=== PATIENT | male | born 1975 | race Caucasian/White ===

== ENCOUNTER 2020-06-16 17:13 | Emergency (ER) | payer SELFPAY ==
--- NOTE | 2020-06-16 17:18 | CTR_ITS ---
PROCEDURE INFORMATION: Exam: CT Cervical Spine Without Contrast Exam date and time: 06/16/2020 5:20 PM Age: 45 years old Clinical indication: Injury or trauma; Fall; Blunt trauma TECHNIQUE: Imaging protocol: Computed tomography images of the cervical spine without contrast. Total images: 355 Radiation optimization: All CT scans at this facility use at least one of these dose optimization techniques: automated exposure control; mA and/or kV adjustment per patient size (includes targeted exams where dose is matched to clinical indication); or iterative reconstruction. COMPARISON: CT Cervical Spine wo* [id number] 04/22/2019 4:28 PM RADIATION DOSE METRICS: Total DLP (mGy-cm): 626.58 FINDINGS: Bones/joints: No acute fracture. Normal alignment. Degenerative disease with mild spondylosis deformans C6 and C7. Moderate facet arthrosis C4/C5 and to a less significant degree C3/C4. Discs/Spinal canal/Neural foramina: Degenerative disc disease with disc space height loss C6/C7. No significant disc protrusion. No severe spinal canal stenosis. Mild left neural foraminal narrowing C3/C4. Lungs: Lung apices are normal. Soft tissues: Unremarkable. CT/CT cervical spin wo con* [id number] IMPRESSION: No acute findings. Radiation Dose CTDIVOL = (mGy): DLP = 626.58 (mGy-cm)
--- NOTE | 2020-06-16 17:18 | CTR_ITS ---
PROCEDURE INFORMATION: Exam: CT Head Without Contrast Exam date and time: 06/16/2020 5:20 PM Age: 45 years old Clinical indication: Injury or trauma; Blunt trauma (contusions or hematomas); Injury details: Fall from roof TECHNIQUE: Imaging protocol: Computed tomography of the head without contrast. Total images: 208 Radiation optimization: All CT scans at this facility use at least one of these dose optimization techniques: automated exposure control; mA and/or kV adjustment per patient size (includes targeted exams where dose is matched to clinical indication); or iterative reconstruction. COMPARISON: CT head wo con* [id number] 04/22/2019 4:24 PM RADIATION DOSE METRICS: Total DLP (mGy-cm): 854.89 FINDINGS: Brain: Normal. No hemorrhage. Unremarkable white matter. No mass effect. Cerebral ventricles: No ventriculomegaly. Bones/joints: Unremarkable. No acute fracture. Paranasal sinuses: Visualized sinuses are unremarkable. No fluid levels. Mastoid air cells: Visualized mastoid air cells are well aerated. Soft tissues: Unremarkable. CT/CT head wo con* [id number] IMPRESSION: No acute intracranial abnormality. Radiation Dose CTDIVOL = (mGy): DLP = 854.89 (mGy-cm)
[2020-06-16 17:38] VITALS: BP 138/90; PULSE 99; RESP 16; TEMP 36.3; O2SAT 100; BMI 19.8
[2020-06-16 18:57] VITALS: BP 129/84; PULSE 100; RESP 18; O2SAT 99
--- NOTE | 2020-06-16 20:36 | ED_ITS ---
HPI - Neck Pain/Injury General: Chief Complaint: Neck Pain/Injury Stated Complaint: fell off roof/neck pain Time Seen by Provider: 06/16/20 18:36 History of Present Illness: HPI Narrative: Patient states he rolled off the roof today landing on the ground that was soft and now has neck pain is at approximately 8 to 10 foot fall denies any other injuries MD complaint: neck pain Onset (ago): hour(s) Place: home Severity: mild Severity scale (1-10): 2 Quality: aching Duration: constant Relieving factors: immobilization Exacerbating factors: movement of neck Context: fall Associated symptoms: Reports no associated symptoms; Denies headache(s) or nausea Treatments prior to arrival: none Review of Systems Const: Denies: fever(s), chills or body aches Eyes: Denies: change in vision or blurry vision ENMT: Denies: throat pain or nasal congestion Card: Denies: chest pain or dyspnea on exertion Resp: Denies: dyspnea, productive cough or non-productive cough GI: Denies: abdominal pain, nausea or vomiting : Denies: difficulty urinating Musc: Reports: neck pain; Denies: extremity pain Skin/Breast: Denies: rash Neuro: Denies: headache(s) Psych: Denies: anxiety or depression Gómez/Lymph: Denies: easy bruising Physical Exam Const: COMMON NORMALS: no acute distress, average body habitus and patient oriented x3 HENMT: COMMON NORMALS: normocephalic HEAD & SCALP: normal to inspection and normocephalic FACE & SINUS: normal facial exam Eye: COMMON NORMALS: conjunctivae normal GENERAL EYE: appearance normal, both eyes and all related structures CONJUNCTIVA: Yes conjunctivae normal Neck/C-Spine: COMMON NORMALS: no JVD CERVICAL SPINE: Yes cervical ROM normal OTHER: Patient has tenderness about C7 area of muscular around the neck no bony pain has full range of motion cervicalHas no radiculopathy Chest: COMMONS NORMALS: normal inspection of the chest Resp: COMMON NORMALS: normal respiratory effort and clear to auscultation bilaterally AUSCULTATION: clear to auscultation bilaterally Cardio: COMMON NORMALS: no JVD, regular rate and regular rhythm RATE: regular rate RHYTHM: regular rhythm GI: COMMON NORMALS: Normal to inspection, nondistended, normoactive bowel sounds present Extremity: COMMON NORMALS: normal to inspection and full ROM Neuro: COMMON NORMALS: patient oriented x3 Course Vital Signs: Vital signs: Vital Signs Temperature 97.3 F L 06/16/20 17:38 Pulse Rate 100 06/16/20 18:57 Respiratory Rate 18 06/16/20 18:57 Blood Pressure 129/84 06/16/20 18:57 Pulse Oximetry 99 06/16/20 18:57 Discharge Plan Discharge Patient Disposition: Home Clinical Impression: Cervical sprain Qualifiers: Encounter type: initial encounter Qualified Code(s): S13.9XXA - Sprain of joints and ligaments of unspecified parts of neck, initial encounter Condition: Stable Prescriptions: New ibuprofen 800 mg tablet 800 mg PO TID PRN (Reason: pain) Qty: 20 RF: 0 cyclobenzaprine 5 mg tablet 5 mg PO TID PRN (Reason: muscle spasm) Qty: 10 RF: 0 Discharge Orders: Discharge ED (Routine); Ordered 06/16/20 Ordered By: Justin Hou Discharge Diet: Usual diet Discharge Activity: Increase activity as tolerated Patient Instructions: Cervical Sprain (ED) Activity Restrictions/Additional Instructions: Follow-up with medical provider as directed. Take medications as prescribed. Return to the ER or your medical provider if condition worsens. Please read and understand discharge instructions. If any questions ask please. Follow-up with chiropractor or your primary care provider as needed. Can apply ice and moist heat to the area alternate. Coding Level of Care Code ED Relay Operator for Syd Palencia
== END 2020-06-16 18:58 | disposition home or self-care (01) ==
PROVIDERS: Emergency Provider Nurse Practitioner Family
DX: S13.9XXA Sprain of joints and ligaments of unspecified parts of neck, initial encounter (principal); W13.2XXA Fall from, out of or through roof, initial encounter
CPT/HCPCS: 12345; 70450; 72125; 99281; 99282

== ENCOUNTER 2020-09-07 20:16 | Emergency (ER) | payer SELFPAY ==
[2020-09-07 20:19] VITALS: BP 147/94; PULSE 107; RESP 19; TEMP 36.5; O2SAT 99; BMI 27.7
--- NOTE | 2020-09-07 20:26 | XR_ITS ---
WS: [id number] RIGHT FOOT: 3 VIEW(S) TECHNIQUE: AP, oblique and lateral. HISTORY: pain COMPARISON: None available. No acute fracture or dislocation. Normal tarsal/metatarsal alignment. Hypertrophic bone formation consistent with osteophytes involving the anterior talar neck. This may be from an old injury. No soft tissue abnormality or bone destruction. XR/XR foot RT min 3V* [id number] IMPRESSION: 1. No acute fracture. 2. Hypertrophic bone involving the anterior talar process. May be from old inj ury or arthritis.
--- NOTE | 2020-09-07 20:30 | ED_ITS ---
HPI - Extremity Problem General: Chief complaint: Extremity Injury, Lower Stated complaint: injury to right foot Time Seen by Provider: 09/07/20 20:26 History of Present Illness: HPI Narrative: Patient planes about pain to his right foot on the outer aspect times months, hurts worse last couple weeks. He feels like the pain is been worse today. Denies any known injury denies any swelling fever or other related problems MD Complaint: extremity pain Onset (ago): month(s) Pain Consistency: constant Location: right and lower extremity Severity scale (1-10): 3 Quality: aching Radiation: none Relieving factors: immobilization and rest Exacerbating factors: weight bearing Associated symptoms: Reports no associated symptoms; Deny fever(s) Review of Systems Const: Denies: fever(s) or chills Musc: Reports: extremity pain (Right foot been hurting for months) Psych: Denies: anxiety or depression Physical Exam Const: COMMON NORMALS: no acute distress Extremity: RIGHT LOWER EXTREMITY: Yes foot & digits (Tenderness along the fifth metatarsal no swelling no redness) Psych: COMMON NORMALS: mental status grossly normal Course Vital Signs: Vital signs: Vital Signs Temperature 97.7 F 09/07/20 20:19 Pulse Rate 107 H 09/07/20 20:19 Respiratory Rate 19 H 09/07/20 20:19 Blood Pressure 147/94 09/07/20 20:19 Pulse Oximetry 99 09/07/20 20:19 Discharge Plan Discharge Prescriptions: No Action ibuprofen 800 mg tablet 800 mg PO TID PRN (Reason: pain) Qty: 20 RF: 0 cyclobenzaprine 5 mg tablet 5 mg PO TID PRN (Reason: muscle spasm) Qty: 10 RF: 0 Coding Level of Care Code ED Printed Circuit Photographer for Syd Palencia
[2020-09-07 20:48] VITALS: BP 151/93; PULSE 94; RESP 16; O2SAT 95
== END 2020-09-07 21:01 | disposition home or self-care (01) ==
PROVIDERS: Emergency Provider Nurse Practitioner Family
DX: M79.671 Pain in right foot (principal)
CPT/HCPCS: 73630; 99282

== ENCOUNTER 2020-10-31 22:36 | Emergency (ER) | payer SELFPAY ==
[2020-10-31 22:45] VITALS: BP 137/88; PULSE 94; RESP 16; TEMP 36.8; O2SAT 96; BMI 28.5
[2020-10-31 22:48] VITALS: PULSE 94
--- NOTE | 2020-10-31 22:50 | XRR_ITS ---
PROCEDURE INFORMATION: Exam: XR Right Shoulder Exam date and time: 10/31/2020 10:51 PM Age: 45 years old Clinical indication: Injury or trauma; Fall; Blunt trauma (contusions or hematomas); Shoulder; Right; Additional info: Fall with right shoulder pain TECHNIQUE: Imaging protocol: XR Right shoulder. Views: 2 or more views. COMPARISON: No relevant prior studies available. FINDINGS: Bones/joints: Normal. Soft tissues: Normal. XR/XR shoulder RT min 2V* [id number] IMPRESSION: No acute findings.
--- NOTE | 2020-10-31 23:30 | ED_ITS ---
HPI - Extremity Problem General: Chief complaint: Extremity Injury, Upper Stated complaint: R SHOULDER INJURY//FELL, LANDED ON SHOULDER Time Seen by Provider: 10/31/20 22:51 History of Present Illness: HPI Narrative: Patient is a 45-year-old male comes to the ED with right shoulder injury. Patient says he was playing basketball and he fell to the ground landing on right shoulder. He states initially he was not in a lot of pain but after few minutes he is started feeling increasing pain in right shoulder. He now rates the pain a 9 out of 10 if he is moving arm at all. He says abducting his right arm causes a lot of pain. Associated symptoms: Deny chest pain, fever(s) or rash Review of Systems Const: Denies: fever(s), chills or fatigue Eyes: Denies: change in vision or eye discomfort ENMT: Denies: throat pain, odynophagia, nasal discharge or nasal congestion Card: Denies: chest pain, palpitations, edema, swelling of feet/ankles, dyspnea on exertion or orthopnea Resp: Denies: dyspnea, productive cough or non-productive cough GI: Denies: abdominal pain, nausea, vomiting, diarrhea, constipation or hematochezia : Denies: flank pain, difficulty urinating, dysuria or hematuria Musc: Reports: extremity pain (right shoulder pain); Denies: neck pain, back pain or extremity swelling Skin/Breast: Denies: rash or new lesions Neuro: Denies: headache(s), numbness in extremities or weakness in extremities Physical Exam Const: COMMON NORMALS: no acute distress, patient oriented x3 and alert GENERAL APPEARANCE: cooperative and comfortable HENMT: COMMON NORMALS: normocephalic HEAD & SCALP: normocephalic MOUTH: Normal oral and palatal mucosa present THROAT: posterior oropharynx normal and uvula midline Neck/C-Spine: COMMON NORMALS: supple GENERAL: Yes normal visual inspection Resp: COMMON NORMALS: normal respiratory effort, No retractions, No use of accessory muscles and clear to auscultation bilaterally AUSCULTATION: clear to auscultation bilaterally Cardio: COMMON NORMALS: regular rate, regular rhythm, S1 normal heart sound present, S2 normal heart sound present, No gallops present (Cardio), No clicks present (Cardio), No murmurs present (Cardio) and Peripheral pulses 2+ throughout RATE: regular rate RHYTHM: regular rhythm HEART SOUNDS: S1 normal heart sound present and S2 normal heart sound present PERIPHERAL PULSES: Peripheral pulses 2+ throughout GI: COMMON NORMALS: Normal to inspection, nondistended, normoactive bowel sounds present, Soft to palpation, non-tender and no masses PALPATION: Yes Soft to palpation : COMMON NORMALS: Yes no CVA tenderness BLADDER/KIDNEY EXAM: Yes no CVA tenderness Back/Pelvis: COMMON NORMALS: no CVA tenderness Extremity: COMMON NORMALS: capillary refill normal RIGHT UPPER EXTREMITY: Yes shoulder joint Right shoulder: Yes Right shoulder joint inspection exam (No visible deformity, ecchymosis or swelling seen. Tender over AC joint), Yes palpation, Yes Right shoulder joint ROM exam (Limited due to pain) and Yes Right shoulder joint neurovascular exam (Intact) Neuro: COMMON NORMALS: patient oriented x3 and moves all extremities SENSORIUM/ORIENTATION: Yes alert Skin: GENERAL SKIN EXAM: dry skin Course Vital Signs: Vital signs: Vital Signs Temperature 98.2 F 11/01/20 00:43 Pulse Rate 87 11/01/20 00:43 Respiratory Rate 16 11/01/20 00:43 Blood Pressure 138/72 11/01/20 00:43 Pulse Oximetry 96 11/01/20 00:43 MDM - Extremity (Nontraumatic) Imaging Data^: Xray Ortho: Attestation: I personally reviewed and interpreted this imaging study as follows: Radiologist's impression: [address] [address] XRay Report Signed Patient: Etienne Jennings Unit #: [id number] : 1975 Acct#:[id number] Age/Sex: 45 / M ADM Date: 10/31/20 Loc: ER Room/Bed: Attending Dr: Ordering Provider/Ordering MD: Ajith Ang Date of Service: 10/31/20 Procedure(s): XR shoulder RT min 2V* [id number] Accession Number(s): [id number] Report Number: [id number] PROCEDURE INFORMATION: Exam: XR Right Shoulder Exam date and time: 10/31/2020 10:51 PM Age: 45 years old Clinical indication: Injury or trauma; Fall; Blunt trauma (contusions or hematomas); Shoulder; Right; Additional info: Fall with right shoulder pain TECHNIQUE: Imaging protocol: XR Right shoulder. Views: 2 or more views. COMPARISON: No relevant prior studies available. FINDINGS: Bones/joints: Normal. Soft tissues: Normal. XR/XR shoulder RT min 2V* [id number] IMPRESSION: No acute findings. Dictated By: Raul Little MD Signed By: Raul Little MD Signed Date/Time: 11/01/20 0007 DD/ 0004 Discharge Plan Discharge Patient Disposition: Home Clinical Impression: Right shoulder pain Qualifiers: Chronicity: acute Qualified Code(s): M25.511 - Pain in right shoulder Condition: Stable Prescriptions: New ibuprofen 800 mg tablet 800 mg PO Q8H PRN (Reason: pain) Qty: 12 RF: 0 No Action Excedrin Extra Strength 250-250-65 mg Tablet 1 - 2 tab PO Q6H PRN (Reason: Migraine Headache) RF: 0 Discharge Orders: Discharge ED (Routine); Ordered 11/01/20 Ordered By: Ajith Ang Discharge Diet: Regular Discharge Activity: Limit activity as instructed Patient Instructions: Shoulder Sprain (ED) Activity Restrictions/Additional Instructions: Follow-up with medical provider as directed in 7 to 10 days for reevaluation. Wear shoulder sling for the next 3 days to allow for healing. Make sure to remove arm from sling multiple times throughout the day and do some range of motion exercises and shoulder to prevent frozen shoulder. Take medications as prescribed. Apply cold pack on right shoulder as well to help with symptoms. Return to the ER or your medical provider if condition worsens. Please read and understand discharge instructions. Thank you for choosing [facility] for your healthcare needs today. Please realize this is an emergency room and that we are providing you with a medical screening exam and this may not be complete and all inclusive of all the testing and or work up that you may need to determine your ailment or severity of your illness. It is very important that you follow up as instructed or that you return to the Emergency Department should you have concerns or if your condition changes or worsens in any way. Coding Level of Care Code ED Bond Analyst for Syd Fwrosy Exam Comprehensive
[2020-11-01] MEDS: HYDROcodone-acetaminophen 7.5-325 mg Tablet 1 TAB PO (00:40)
[2020-11-01 00:43] VITALS: BP 138/72; PULSE 87; RESP 16; TEMP 36.8; O2SAT 96
== END 2020-11-01 00:45 | disposition home or self-care (01) ==
PROVIDERS: Emergency Provider Physician Assistant
DX: M25.511 Pain in right shoulder (principal)
CPT/HCPCS: 73030; 99283

== ENCOUNTER 2021-06-15 14:10 | Emergency (ER) | payer SELFPAY ==
[2021-06-15 14:16] VITALS: BP 120/80; PULSE 117; RESP 20; TEMP 38.3; O2SAT 98; BMI 29.7
[2021-06-15 14:35] LABS: Add Urine Microscopic? NO; Charge for UA Resulting for Rev
[2021-06-15 14:37] LABS: Basophils % 0.4 %; Eosinophils # 0.1 10^3/uL (0.0-0.8); Eosinophils % 1.3 %; Hematocrit 44.5 % (42.0-52.0); Hemoglobin 14.9 g/dL (11.7-16.6); Lymphocytes # 0.3 10^3/uL (0.8-4.8); Lymphocytes % 4.5 %; Mean Corpuscular HGB Conc 33.5 g/dL (30.0-36.0); Mean Corpuscular Hemoglobin 29.6 pg (28.0-34.0); Mean Corpuscular Volume 88.5 fl (80-94); Mean Platelet Volume 12.9 fL (7.4-10.4); Monocytes # 0.5 10^3/uL (0.2-0.9); Monocytes % 7.2 %; Neutrophils # 6.09 10^3/uL (1.8-7.7); Neutrophils % 86.2 %; Nucleated Red Blood Cells % 0 %; Platelet Count 180 10^3/cmm (130-400); Red Blood Count 5.03 10^6/uL (4.1-5.3); Red Cell Distribution Width 13.2 % (12.1-15.1); White Blood Count 7.1 10^3/uL (4.0-10.0)
[2021-06-15] MEDS: acetaminophen 500 mg Tablet 1000 MG PO (14:39)
[2021-06-15 14:40] LABS: Bilirubin Urine Neg (Negative); Blood Urine Neg (Negative); Glucose Urine UA Norm (Normal); Ketones Urine Negative (Negative); Leukocyte Esterase Urine Negative (Negative); Nitrate Urine Negative (Negative); Protein Urine Neg (Negative); Urine Appearance Clear (CLEAR); Urine Color Yellow (Yellow); Urobilinogen Urine Norm (Negative); pH Urine 7 (5-7)
[2021-06-15 15:01] LABS: Alanine Aminotransferase 19 U/L (0-41); Albumin Level 4.2 g/dL (3.5-5.2); Alkaline Phosphatase 64 IU/L (40-130); Anion Gap 17.3 (5-19); Aspartate Amino Transferase 15 U/L (0-40); Blood Urea Nitrogen 10 mg/dL (6-20); Calcium 9.7 mg/dL (8.5-10.5); Carbon Dioxide 20 mmol/L (22-29); Chloride 102 mmol/L (98-107); Globulin 2.5 g/dL (1.3-4.6); Glomerular Filtration Rate 91.7 mL/min (90-130); Glucose 94 mg/dL (65-115); Osmolality Calculated 279 mOsm/kg (285-295); Potassium 4.3 mmol/L (3.5-5.1); Sodium 135 mmol/L (136-145); Total Bilirubin 0.2 mg/dL (0.15-1.2); Total Protein 6.7 g/dL (6.6-8.7)
--- NOTE | 2021-06-15 15:24 | CTR_ITS ---
PROCEDURE INFORMATION: Exam: CT Head Without Contrast Exam date and time: 06/15/2021 3:24 PM Age: 46 years old Clinical indication: Pain; Fever; Headache; Patient HX: --perez x last night. Nausea; Additional info: Fever, headache TECHNIQUE: Imaging protocol: Computed tomography of the head without contrast. Radiation optimization: All CT scans at this facility use at least one of these dose optimization techniques: automated exposure control; mA and/or kV adjustment per patient size (includes targeted exams where dose is matched to clinical indication); or iterative reconstruction. COMPARISON: CT head wo con* [id number] 06/16/2020 5:22 PM RADIATION DOSE METRICS: Total DLP (mGy-cm): 932.35 FINDINGS: Brain: Normal. No hemorrhage. Unremarkable white matter. No mass effect. Cerebral ventricles: No ventriculomegaly. Paranasal sinuses: Visualized sinuses are unremarkable. No fluid levels. Mastoid air cells: Visualized mastoid air cells are well aerated. Bones/joints: Unremarkable. No acute fracture. Soft tissues: Unremarkable. CT/CT head wo con* [id number] IMPRESSION: No acute intracranial abnormality.
[2021-06-15] MEDS: ketorolac 30 mg/mL INJ IVP (15:25)
[2021-06-15] MEDS: sodium chloride 0.9% 1,000 ML 999 ML IV ×2 (15:26→17:24)
--- NOTE | 2021-06-15 15:27 | ED_ITS ---
HPI - General Adult General: Chief complaint: Headache Stated complaint: h/a Time Seen by Provider: 06/15/21 14:37 History of Present Illness: HPI narrative: Patient is a 46-year-old male history of migraines presenting to the emergency room with new onset of headache x 2 days with fever. Patient denied that he has bilateral neck pain. Denies of this the worst headache of his life. Patient reports bilateral neck pain and photophobia. Patient denies any nausea/vomiting, focal neurological weakness, chest pain, shortness breath palpitation, cough, runny nose, sore throat. Since that headache is feels different from prior headaches migraine. Onset: 8 hrs ago Duration:ongoing Location:home Severity:moderate Associated symptoms: Reports headache(s); Deny chest pain, dyspnea, nausea, rash, palpitations or vomiting Review of Systems Const: Reports: fever(s) and chills Eyes: Denies: change in vision ENMT: Reports: other (+neck pain); Denies: mouth pain Card: Denies: chest pain or palpitations Resp: Denies: dyspnea or non-productive cough GI: Denies: abdominal pain, nausea, vomiting or diarrhea : Denies: dysuria Musc: Denies: extremity pain Skin/Breast: Denies: rash or new lesions Neuro: Reports: headache(s); Denies: weakness in extremities Psych: Reports: other (Normal mood) Gómez/Lymph: Denies: easy bruising Physical Exam Const: COMMON NORMALS: alert HENMT: COMMON NORMALS: atraumatic HEAD & SCALP: atraumatic MOUTH: moist mucous membranes not abnormal Eye: COMMON NORMALS: EOMs intact bilaterally and conjunctivae normal CON JUNCTIVA: Yes conjunctivae normal Neck/C-Spine: COMMON NORMALS: full ROM and supple Resp: COMMON NORMALS: normal respiratory effort and clear to auscultation bilaterally AUSCULTATION: clear to auscultation bilaterally Cardio: COMMON NORMALS: regular rate RATE: regular rate GI: COMMON NORMALS: Soft to palpation and non-tender PALPATION: Yes Soft to palpation Extremity: COMMON NORMALS: full ROM Neuro: SENSORIUM/ORIENTATION: Yes alert MOTOR EXAM: No Abnormal motor strength present and Other motor observations present (no focal motor deficits) Psych: COMMON NORMALS: speech normal SPEECH: Yes normal speech MOOD & AFFECT: Yes euthymic mood Course Vital Signs: Vital signs: Vital Signs Temperature 100.9 F H 06/15/21 14:16 Pulse Rate 117 H 06/15/21 14:16 Respiratory Rate 20 H 06/15/21 14:16 Blood Pressure 120/80 06/15/21 14:16 Pulse Oximetry 98 06/15/21 14:16 MDM - General Adult MDM Narrative: Medical decision making narrative: Patient is a 46-year-old male with a history of migraine the emergency room with headache x 2 days acutely worsneing since 8 AM this morning w/ fever. Patient is noted be febrile 100.8 degrees patient is also noted to be tachycardic moderate distress. No signs of visible petechiae on extremities. WBC of 7.1, CRP within normal limit. CTA head and neck negative for any signs of aneurysm. True Covid PCR positive today. Symptoms likely consistent with Covid as opposed to meningitis decision was made in conjunction with patient to not perform an LP at this time. Patient treated magnesium, IVF, Benadryl, Reglan, Toradol with significant improvement in headache. Vitals improved on reassessment. Patient is able to ambulate without difficulty tolerate p.o. without difficulty. I have given patient strict return precaution for any drops in the pulse ox to less than 88% while on oxygen. Rx tylenol PRN abd pain/fever, maalox/pepcid PRN dyspepsia, and zofran PRN nausea/vomiting Disposition: Discharge. Patient counseled regarding diagnostic impression, treatment plan. Patient given ED strict return precautions to return for continuation, worsening, or development of new symptoms. Instructed to f/u w/ PCP regarding symptoms today. Patient verbalized understanding. Lab Data: Labs: Lab Results 06/15/21 06/15/21 06/15/21 14:21 14:26 14:26 WBC 7.1 10^3/uL 10^3/ uL (4.0-10.0) RBC 5.03 10^6/uL 10^6 /uL (4.1-5.3) Hgb 14.9 g/dL g/dL (11.7-16.6) Hct 44.5 % % (42.0-52.0) MCV 88.5 fl fl (80-94) MCH 29.6 pg pg (28.0-34.0) MCHC 33.5 g/dL g/dL (30.0-36.0) RDW 13.2 % % (12.1-15.1) Plt Count 180 10^3/cmm 10^3 /cmm (130-400) MPV 12.9 fL H fL (7.4-10.4) Neut % (Auto) 86.2 % % Lymph % (Auto) 4.5 % % [place] % (Auto) 7.2 % % Eos % (Auto) 1.3 % % Baso % (Auto) 0.4 % % Neut # (Auto) 6.09 10^3/uL 10^3 /uL (1.8-7.7) Lymph # (Auto) 0.3 10^3/uL L 10^ 3/uL (0.8-4.8) [place] # (Auto) 0.5 10^3/uL 10^3/ uL (0.2-0.9) Eos # (Auto) 0.1 10^3/uL 10^3/ uL (0.0-0.8) Baso # (Auto) 0.0 10^3/uL 10^3/ uL (0.0-0.1) Nucleated RBC % (a uto) 0 % % Nucleated RBCs # 0.0 /100WBC /100W BC PT INR APTT Sodium 135 mmol/L L mmol /L (136-145) Potassium 4.3 mmol/L mmol/L (3.5-5.1) Chloride 102 mmol/L mmol/L (98-107) Carbon Dioxide 20 mmol/L L mmol/ L (22-29) Anion Gap 17.3 (5-19) BUN 10 mg/dL mg/dL (6-20) Creatinine 0.9 mg/dL mg/dL (0.7-1.2) GFR Calculation 91.7 mL/min mL/mi n (90-130) Glucose 94 mg/dL mg/dL (65-115) Calculated Osmolal ity 279 mOsm/kg L mOs m/kg (285-295) Calcium 9.7 mg/dL mg/dL (8.5-10.5) Total Bilirubin 0.2 mg/dL mg/dL (0.15-1.2) AST 15 U/L U/L (0-40) ALT 19 U/L U/L (0-41) Alkaline Phosphata se 64 IU/L IU/L (40-130) C-Reactive Protein 0.6 mg/L mg/L (0.0-4.9) Total Protein 6.7 g/dL g/dL (6.6-8.7) Albumin 4.2 g/dL g/dL (3.5-5.2) Globulin 2.5 g/dL g/dL (1.3-4.6) Urine Color Urine Appearance Urine pH Ur Specific Gravit y Urine Protein Urine Glucose (UA) Urine Ketones Urine Blood Urine Nitrate Urine Bilirubin Urine Urobilinogen Ur Leukocyte Ghazal ase Nasal Influ A H1 2 009 PCR Coronavirus 229E ( PCR) Influenza A (H1) P CR Influenza A (H3) P CR Influenza Type A A g Influenza Type A ( PCR) Influenza Type B A g Influenza Type B ( PCR) SARS-CoV-2 (PCR) 06/15/21 06/15/21 06/15/21 14:26 15:29 15:29 WBC RBC Hgb Hct MCV MCH MCHC RDW Plt Count MPV Neut % (Auto) Lymph % (Auto) [place] % (Auto) Eos % (Auto) Baso % (Auto) Neut # (Auto) Lymph # (Auto) [place] # (Auto) Eos # (Auto) Baso # (Auto) Nucleated RBC % (a uto) Nucleated RBCs # PT INR APTT Sodium Potassium Chloride Carbon Dioxide Anion Gap BUN Creatinine GFR Calculation Glucose Calculated Osmolal ity Calcium Total Bilirubin AST ALT Alkaline Phosphata se C-Reactive Protein Total Protein Albumin Globulin Urine Color Yellow (Yellow) Urine Appearance Clear (CLEAR) Urine pH 7 (5-7) Ur Specific Gravit y 1.010 (1.005-1.030) Urine Protein Neg (Negative) Urine Glucose (UA) Norm (Normal) Urine Ketones Negative (Negative) Urine Blood Neg (Negative) Urine Nitrate Negative (Negative) Urine Bilirubin Neg (Negative) Urine Urobilinogen Norm mg/dL mg/dL (Negative) Ur Leukocyte Ghazal ase Negative (Negative) Nasal Influ A H1 2 009 PCR Coronavirus 229E ( PCR) Not detected (NOT DETECT) Influenza A (H1) P CR Influenza A (H3) P CR Influenza Type A A g Cancelled Influenza Type A ( PCR) Influenza Type B A g Cancelled Influenza Type B ( PCR) SARS-CoV-2 (PCR) Detected A (NOT DETECT) 06/15/21 06/15/21 15:32 17:29 WBC RBC Hgb Hct MCV MCH MCHC RDW Plt Count MPV Neut % (Auto) Lymph % (Auto) [place] % (Auto) Eos % (Auto) Baso % (Auto) Neut # (Auto) Lymph # (Auto) [place] # (Auto) Eos # (Auto) Baso # (Auto) Nucleated RBC % (a uto) Nucleated RBCs # PT 13.20 SECONDS SEC ONDS (12.1-14.9) INR 0.97 (0.8-1.2) APTT 27.5 SECONDS SECO NDS (23.9-36.7) Sodium Potassium Chloride Carbon Dioxide Anion Gap BUN Creatinine GFR Calculation Glucose Calculated Osmolal ity Calcium Total Bilirubin AST ALT Alkaline Phosphata se C-Reactive Protein Total Protein Albumin Globulin Urine Color Urine Appearance Urine pH Ur Specific Gravit y Urine Protein Urine Glucose (UA) Urine Ketones Urine Blood Urine Nitrate Urine Bilirubin Urine Urobilinogen Ur Leukocyte Ghazal ase Nasal Influ A H1 2 009 PCR Not detected (NOT DETECT) Coronavirus 229E ( PCR) Influenza A (H1) P CR Not detected (NOT DETECT) Influenza A (H3) P CR Not detected (NOT DETECT) Influenza Type A A g Influenza Type A ( PCR) Not detected (NOT DETECT) Influenza Type B A g Influenza Type B ( PCR) Not detected (NOT DETECT) SARS-CoV-2 (PCR) Imaging Data^: Other Imaging: Radiologist's impression: [address] [id number] Scan ReportSigned Patient: Etienne Jennings #: [id number]: 1975Acct#:[id number]/Sex: 46 / MADM Date: 06/15/21Loc: ERRoom/Bed:Attending Dr: Ordering Provider/Ordering MD: Panfilo De Los Santos MD Date of Service: 06/15/21 Procedure(s): CT angio head 97262 Accession Number(s): [id number] Report Number: [id number] WS: [id number] CT ANGIOGRAM CEREBRAL ARTERIES HISTORY: eval for aneurysms TECHNIQUE: Pre and postcontrast imaging through the brain. CT angiogram is performed of the cerebral arteries. During arterial injection imaging is obtained from the skull vertex to the skull base in 1.25 mm imaging. Coronal and sagittal reformats are submitted. Additional multi planar reformats of the cerebral arteries are submitted, MIP imaging also reviewed. All CT scans at [facility] use at least one of these dose optimization techniques: automated exposure control; mA and/or kV adjustment per patient size (includes targeted exams where dose is matched to clinical indication); or iterative reconstruction. CONTRAST: Omnipaque 350; 95 mL IV. DLP: 643.8 mGy.cm COMPARISON: 06/15/2021 No mass effect or acute intracranial hemorrhage identified on this postcontrast examination. Ventricles are normal size. Intracranial vertebral arteries: Normal with no significant atherosclerosis. Basilar artery: No significant stenosis or occlusion. No aneurysm. Intracranial Internal carotid arteries: Demonstrates no significant stenosis or plaque. Middle cerebral arteries: Normal. Anterior cerebral arteries and ACOM: Normal. Posterior cerebral arteries and PCOM's: Normal. Dural venous sinuses are normally enhancing. Mastoid air cells: Mild coalescence of the LEFT mastoid air cells. No acute mastoiditis. Paranasal sinuses: Normal. Calvarium: Normal. CT/CT angio head [id number] IMPRESSION: 1. No cerebral artery aneurysms are identified. 2. No cerebral artery obstruction. Dictated By:Gissell Gardner DOSigned By:Gissell Gardner DOSigned Date/Time:06/15/21 1617DD/ [address] [facility] [place], [place] [address]YN Scan ReportSigned Patient: Etienne Jennings #: [id number]: [id number]#:[id number]/Sex: 46 / MADM Date: 06/15/21Loc: ERRoom/Bed:Attending Dr: Ordering Provider/Ordering MD: Panfilo De Los Santos MD Date of Service: 06/15/21 Procedure(s): CT head wo con* [id number] Accession Number(s): [id number] Report Number: [id number] PROCEDURE INFORMATION: Exam: CT Head Without Contrast Exam date and time: 06/15/2021 3:24 PM Age: 46 years old Clinical indication: Pain; Fever; Headache; Patient HX: --perez x last night. Nausea; Additional info: Fever, headache TECHNIQUE: Imaging protocol: Computed tomography of the head without contrast. Radiation optimization: All CT scans at this facility use at least one of these dose optimization techniques: automated exposure control; mA and/or kV adjustment per patient size (includes targeted exams where dose is matched to clinical indication); or iterative reconstruction. COMPARISON: CT head wo con* [id number] 06/16/2020 5:22 PM RADIATION DOSE METRICS: Total DLP (mGy-cm): 932.35 FINDINGS: Brain: Normal. No hemorrhage. Unremarkable white matter. No mass effect. Cerebral ventricles: No ventriculomegaly. Paranasal sinuses: Visualized sinuses are unremarkable. No fluid levels. Mastoid air cells: Visualized mastoid air cells are well aerated. Bones/joints: Unremarkable. No acute fracture. Soft tissues: Unremarkable. CT/CT head wo con* [id number] IMPRESSION: No acute intracranial abnormality. Dictated By:Elijah Pena DOSigned By:Elijah Pena DOSigned Date/Time:06/15/21 1613DD/ 1524 Discharge Plan Discharge Patient Disposition: Home Clinical Impression: Fever, Headache, COVID Condition: Stable Prescriptions: New acetaminophen 500 mg tablet 500 mg PO Q6H PRN (Reason: pain) 5 Days Qty: 20 RF: 0 Zofran 4 mg tablet 4 mg PO TID PRN (Reason: nausea and vomiting) 4 Days Qty: 12 RF: 0 Pepcid 20 mg tablet 20 mg PO BID PRN (Reason: abdominal pain) 10 Days Qty: 20 RF: 0 Maalox Advanced 1,000-60 mg tablet,chewable 1 tab PO TID PRN (Reason: abdominal pain) 7 Days Qty: 21 RF: 0 No Action Excedrin Extra Strength 250-250-65 mg Tablet 1 - 2 tab PO Q6H PRN (Reason: Migraine Headache) RF: 0 ibuprofen 800 mg tablet 800 mg PO Q8H PRN (Reason: pain) Qty: 12 RF: 0 Discharge Orders: Discharge ED (Routine); Ordered 06/15/21 Ordered By: Panfilo De Los Santos Discharge Diet: Advance as tolerated Discharge Activity: Resume usual activity Patient Instructions: Acute Headache (ED), COVID-19 (Coronavirus Disease 2019) (ED) Activity Restrictions/Additional Instructions: Come back to the emergency room if your symptoms worsen, have any shortness of breath, fever/chills, dehydration, inability tolerate p.o., any difficulty breathing, or any new or concerning complaints. Please return the emergency room if your pulse ox reads less than 88%. Stand Alone Forms: Work/School Release Coding Level of Care Code ED Baller Tender for Syd Fwd Exam Comprehensive
--- NOTE | 2021-06-15 15:29 | CT_ITS ---
WS: [id number] CT ANGIOGRAM CEREBRAL ARTERIES HISTORY: eval for aneurysms TECHNIQUE: Pre and postcontrast imaging through the brain. CT angiogram is performed of the cerebral arteries. During arterial injection imaging is obtained from the skull vertex to the skull base in 1. 25 mm imaging. Coronal and sagittal reformats are submitted. Additional multi planar reformats of the cerebral arteries are submitted, MIP imaging also reviewed. All CT scans at [facility] use at least one of these dose optimization techniques: automated exposure control; mA and/or kV adjustme nt per patient size (includes targeted exams where dose is matched to clinical indication); or iterat vicente reconstruction. CONTRAST: Omnipaque 350; 95 mL IV. DLP: 643.8 mGy.cm COMPARISON: 06/15/2021 No mass effect or acute intracranial hemorrhage identified on this postcontrast examination. Ventricl es are normal size. Intracranial vertebral arteries: Normal with no significant atherosclerosis. Basilar artery: No significant stenosis or occlusion. No aneurysm. Intracranial Internal carotid arteries: Demonstrates no significant stenosis or plaque. Middle cerebral arteries: Normal. Anterior cerebral arteries and ACOM: Normal. Posterior cerebral arteries and PCOM's: Normal. Dural venous sinuses are normally enhancing. Mastoid air cells: Mild coalescence of the LEFT mastoid air cells. No acute mastoiditis. Paranasal sinuses: Normal. Calvarium: Normal. CT/CT angio head [id number] IMPRESSION: 1. No cerebral artery aneurysms are identified. 2. No cerebral artery obstruction.
[2021-06-15 15:48] LABS: C Reactive Protein 0.6 mg/L (0.0-4.9)
[2021-06-15 15:57] LABS: INR 0.97 (0.8-1.2)
[2021-06-15 15:58] LABS: Partial Thromboplastin Time 27.5 SECONDS (23.9-36.7)
[2021-06-15] MEDS: iohexol 350 mg/mL 100 mL Btl IV (15:59)
[2021-06-15] MEDS: metoclopramide 5 mg/mL SDV 2 mL 10 MG IVP (16:23)
[2021-06-15] MEDS: diphenhydrAMINE 50 mg/mL SDV 1mL IVP (16:23)
[2021-06-15] MEDS: magnesium sulfate premix 2 GM/50 ML PIGGYBACK IV (16:27)
[2021-06-15 17:25] LABS: Adenovirus Not Detected (NOT DETECT); Chlamydia Pneumoniae Not Detected (NOT DETECT); Coronavirus 229E,HKU1,NL63,OC4 Not Detected (NOT DETECT); Human Metapneumovirus Not Detected (NOT DETECT); Human Rhinovirus/Enterovirus Not Detected (NOT DETECT); Influenza A Not Detected (NOT DETECT); Influenza A H1 Not Detected (NOT DETECT); Influenza A H1-2009 Not Detected (NOT DETECT); Influenza A H3 Not Detected (NOT DETECT); Influenza B Not Detected (NOT DETECT); Mycoplasma Pneumoniae Not Detected (NOT DETECT); Parainfluenza Virus Type 1 Not Detected (NOT DETECT); Parainfluenza Virus Type 2 Not Detected (NOT DETECT); Parainfluenza Virus Type 3 Not Detected (NOT DETECT); Parainfluenza Virus Type 4 Not Detected (NOT DETECT); Respiratory Syncytial Virus A Not Detected (NOT DETECT); Respiratory Syncytial Virus B Not Detected (NOT DETECT); SARS-COV-2 Detected (NOT DETECT)
[2021-06-15 17:30] LABS: Influenza A Not Detected (NOT DETECT); Influenza A H1 Not Detected (NOT DETECT); Influenza A H1-2009 Not Detected (NOT DETECT); Influenza A H3 Not Detected (NOT DETECT); Influenza B Not Detected (NOT DETECT); Results from Genmark
[2021-06-15 18:26] VITALS: BP 107/63; PULSE 88; RESP 16; TEMP 36.8; O2SAT 99
== END 2021-06-15 18:27 | disposition home or self-care (01) ==
PROVIDERS: Nurse Practitioner Family; Emergency Provider Emergency Medicine
DX: U07.1 COVID-19 (principal); R51.9 Headache, unspecified
CPT/HCPCS: 36415; 70450; 70496; 80053; 81003; 85025; 85610; 85730; 86140; 87040; 87205; 87631; 87635; 96365; 96375; 99283; J1200; J1885; J2765; J3475; J7030; Q9967

== ENCOUNTER 2021-08-18 19:44 | Observation (INO) | payer SELFPAY ==
[2021-08-18 19:52] VITALS: BP 137/86; PULSE 65; RESP 18; TEMP 37; O2SAT 100; BMI 29.7
--- NOTE | 2021-08-18 20:25 | W.ED.ABDPA2 ---
Documented by User: TERRA De Los Santos 08/18/21 21:53 HPI - Abdominal Pain General: Chief Complaint: Abdominal Pain Stated Complaint: Abd Pain Time Seen by Provider: 08/18/21 20:25 History of Present Illness: 46-year-old male patient comes in today with complaints of left lower quadrant abdominal pain starting about 4:00 this afternoon. Patient reports that the pain is so bad it makes him want to double over. Patient denies any surgeries or chronic medical condition. Patient appears nontoxic. Patient appears in moderate pain. Patient reports nothing improves the pain or worsens the pain. Last meal at noon. Smokes tobacco. MD elicited complaint: abdominal pain Pertinent past history: none Onset (ago): hour(s) Pain Consistency: constant Location: LLQ Severity: moderate Quality: stabbing and fullness Associated Symptoms: Reports nausea Review of Systems General: Reports: 10 or more systems reviewed and unremarkable except in HPI and below GI: Reports: abdominal pain and nausea Physical Exam Const: COMMON NORMALS: alert HENMT: COMMON NORMALS: normocephalic HEAD & SCALP: normocephalic THROAT: posterior oropharynx normal Neck/C-Spine: COMMON NORMALS: full ROM Resp: COMMON NORMALS: normal respiratory effort and clear to auscultation bilaterally AUSCULTATION: clear to auscultation bilaterally Cardio: COMMON NORMALS: regular rate and regular rhythm RATE: regular rate RHYTHM: regular rhythm GI: COMMON NORMALS: Soft to palpation INSPECTION: Yes normal to inspection AUSCULTATION: Yes normoactive bowel sounds PALPATION: Yes Soft to palpation, Yes Tenderness to palpation present (GI) Details: LLQ, Yes Guarding due to palpation present (GI), No Abdominal wall crepitus present and Yes Rebound tenderness present Details: periumbilical : COMMON NORMALS: Yes no CVA tenderness BLADDER/KIDNEY EXAM: Yes no CVA tenderness Back/Pelvis: COMMON NORMALS: no CVA tenderness Extremity: COMMON NORMALS: no pedal edema Neuro: SENSORIUM/ORIENTATION: Yes alert Psych: COMMON NORMALS: cooperative Skin: COMMON NORMALS: no rashes or lesions noted GENERAL SKIN EXAM: no rashes or lesions noted Course ED course: 2149, reviewed patient with Dr. Vázquez who recommended I discussed with Dr. Murillo for surgical intervention for acute appendicitis. Dr. Murillo agreed for admission. I reviewed this with patient who agreed to plan. Vital Signs: Vital signs: Vital Signs Temperature 98.6 F 08/18/21 19:52 Pulse Rate 66 08/18/21 23:31 Respiratory Rate 20 H 08/18/21 23:31 Blood Pressure 136/66 08/18/21 23:31 Pulse Oximetry 99 08/18/21 21:02 MDM - Abdominal Pain Medical Decision Making Patient comes in today with complaints of left lower quadrant abdominal pain. On exam patient has tenderness in the abdomen that localizes to the left lower quadrant. Respirations are even lungs are clear to auscultation. Vital signs are normal. Patient denies any vomiting or fever. Differential diagnosis includes diverticulitis, renal calculi, colitis, constipation. CBC noted mild leukocytosis at 10.8, CMP was unremarkable, CT of the abdomen and pelvis noted acute appendicitis. Reviewed patient with Dr. Vázquez he recommended discussion with Dr. Murillo. Dr. Murillo agreed to have the patient admitted to his services for surgical removal of appendix in the morning. Patient was placed on Zosyn antibiotic, medications for pain. Kept n.p.o. after midnight and IV fluids. Lab Data : 08/18/21 20:40 08/18/21 20:40 Labs/Radiology: Radiology Impressions Abdomen/Pelvis CT 08/18/21 20:26 IMPRESSION: Acute appendicitis. ADDENDUM: 08/18/212130 Confirmation that DALLIN TROY recieved the report was obtained 9:30 PM CST08/18/2021 Laboratory Results WBC 10.8 10^3/uL (4.0-10.0) H 08/18/21 20:40 RBC 5.22 10^6/uL (4.1-5.3) 08/18/21 20:40 Hgb 15.3 g/dL (11.7-16.6) 08/18/21 20:40 Hct 46.0 % (42.0-52.0) 08/18/21 20:40 MCV 88.1 fl (80-94) 08/18/21 20:40 MCH 29.3 pg (28.0-34.0) 08/18/21 20:40 MCHC 33.3 g/dL (30.0-36.0) 08/18/21 20:40 RDW 13.3 % (12.1-15.1) 08/18/21 20:40 Plt Count 202 10^3/cmm (130-400) 08/18/21 20:40 MPV 12.7 fL (7.4-10.4) H 08/18/21 20:40 Neut % (Auto) 76.0 % 08/18/21 20:40 Lymph % (Auto) 16.3 % 08/18/21 20:40 [place] % (Auto) 6.3 % 08/18/21 20:40 Eos % (Auto) 1.0 % 08/18/21 20:40 Baso % (Auto) 0.2 % 08/18/21 20:40 Neut # (Auto) 8.23 10^3/uL (1.8-7.7) H 08/18/21 20:40 Lymph # (Auto) 1.8 10^3/uL (0.8-4.8) 08/18/21 20:40 [place] # (Auto) 0.7 10^3/uL (0.2-0.9) 08/18/21 20:40 Eos # (Auto) 0.1 10^3/uL (0.0-0.8) 08/18/21 20:40 Baso # (Auto) 0.0 10^3/uL (0.0-0.1) 08/18/21 20:40 Nucleated RBC % (auto) 0 % 08/18/21 20:40 Nucleated RBCs # 0.0 /100WBC 08/18/21 20:40 Sodium 136 mmol/L (136-145) 08/18/21 20:40 Potassium 4.2 mmol/L (3.5-5.1) 08/18/21 20:40 Chloride 99 mmol/L (98-107) 08/18/21 20:40 Carbon Dioxide 26 mmol/L (22-29) 08/18/21 20:40 Anion Gap 15.2 (5-19) 08/18/21 20:40 BUN 15 mg/dL (6-20) 08/18/21 20:40 Creatinine 1.0 mg/dL (0.7-1.2) 08/18/21 20:40 GFR Calculation 81.2 mL/min (90-130) L 08/18/21 20:40 Glucose 96 mg/dL (65-115) 08/18/21 20:40 Calculated Osmolality 283 mOsm/kg (285-295) L 08/18/21 20:40 Calcium 9.1 mg/dL (8.5-10.5) 08/18/21 20:40 Total Bilirubin 0.3 mg/dL (0.15-1.2) 08/18/21 20:40 AST 32 U/L (0-40) 08/18/21 20:40 ALT 64 U/L (0-41) H 08/18/21 20:40 Alkaline Phosphatase 69 IU/L (40-130) 08/18/21 20:40 Total Protein 7.5 g/dL (6.6-8.7) 08/18/21 20:40 Albumin 4.6 g/dL (3.5-5.2) 08/18/21 20:40 Globulin 2.9 g/dL (1.3-4.6) 08/18/21 20:40 Discharge Plan Discharge Patient Disposition: Admitted As Inpatient Admit Provider: Bernard Murillo Clinical Impression: Acute appendicitis Condition: Stable Coding Level of Care Code ED Concrete Pipe Plant Supervisor for Chg Fwd Exam Comprehensive Documented by User: Charles Vázquez DO 08/19/21 00:10 HPI - Abdominal Pain General: Chief Complaint: Abdominal Pain Stated Complaint: Abd Pain Time Seen by Provider: 08/18/21 20:25 Course Vital Signs: Vital signs: Vital Signs Temperature 98.6 F 08/18/21 19:52 Pulse Rate 66 08/18/21 23:31 Respiratory Rate 20 H 08/18/21 23:31 Blood Pressure 136/66 08/18/21 23:31 Pulse Oximetry 99 08/18/21 21:02 MDM - Abdominal Pain Medical Decision Making Patient comes in today with complaints of left lower quadrant abdominal pain. On exam patient has tenderness in the abdomen that localizes to the left lower quadrant. Respirations are even lungs are clear to auscultation. Vital signs are normal. Patient denies any vomiting or fever. Differential diagnosis includes diverticulitis, renal calculi, colitis, constipation. CBC noted mild leukocytosis at 10.8, CMP was unremarkable, CT of the abdomen and pelvis noted acute appendicitis. Reviewed patient with Dr. Vázquez he recommended discussion with Dr. Murillo. Dr. Murillo agreed to have the patient admitted to his services for surgical removal of appendix in the morning. Patient was placed on Zosyn antibiotic, medications for pain. Kept n.p.o. after midnight and IV fluids. This patient was originally seen by TERRA Hernandez.? I agree with his history, evaluation, and treatment. Lab Data : 08/18/21 20:40 08/18/21 20:40 Labs/Radiology: Radiology Impressions Abdomen/Pelvis CT 08/18/21 20:26
--- NOTE | 2021-08-18 20:26 | CTR_ITS ---
PROCEDURE INFORMATION: Exam: CT Abdomen And Pelvis With Contrast Exam date and time: 08/18/2021 8:26 PM Age: 46 years old Clinical indication: Abdominal pain; Localized; Left lower quadrant (llq); Patient HX: C/O llq abd pain w nausea today; Additional info: Llq pain, nausea TECHNIQUE: Imaging protocol: Computed tomography of the abdomen and pelvis with contrast. Radiation optimization: All CT scans at this facility use at least one of these dose optimization techniques: automated exposure control; mA and/or kV adjustment per patient size (includes targeted exams where dose is matched to clinical indication); or iterative reconstruction. Contrast material: OMNI 300; Contrast volume: 95 ml; Contrast route: INTRAVENOUS (IV); COMPARISON: CR Chest 1 [place] [id number] 04/22/2019 2:52 PM RADIATION DOSE METRICS: Total DLP (mGy-cm): 1713.13 FINDINGS: Liver: Normal. No mass. Gallbladder and bile ducts: Normal. No calcified stones. No ductal dilation. Pancreas: Normal. No ductal dilation. Spleen: Normal. No splenomegaly. Adrenal glands: Normal. No mass. Kidneys and ureters: Normal. No hydronephrosis. Stomach and bowel: Unremarkable. No obstruction. No mucosal thickening. Appendix: The appendix is mildly enlarged measuring up to 9.5 mm in diameter. Appendiceal wall thickening and mild periappendiceal fat stranding are appreciated. Intraperitoneal space: No abscess or free air. Vasculature: Unremarkable. No abdominal aortic aneurysm. Lymph nodes: Unremarkable. No enlarged lymph nodes. Urinary bladder: Unremarkable as visualized. Reproductive: Unremarkable as visualized. Bones/joints: No acute fracture. Soft tissues: Unremarkable. CT/CT abdomen pelvis w con* [id number] IMPRESSION: Acute appendicitis.
[2021-08-18] MEDS: iohexol 300 mg/mL 100 mL Btl IV (20:45)
[2021-08-18 20:50] LABS: Basophils % 0.2 %; Eosinophils # 0.1 10^3/uL (0.0-0.8); Hemoglobin 15.3 g/dL (11.7-16.6); Lymphocytes # 1.8 10^3/uL (0.8-4.8); Lymphocytes % 16.3 %; Mean Corpuscular HGB Conc 33.3 g/dL (30.0-36.0); Mean Corpuscular Hemoglobin 29.3 pg (28.0-34.0); Mean Corpuscular Volume 88.1 fl (80-94); Mean Platelet Volume 12.7 fL (7.4-10.4); Monocytes # 0.7 10^3/uL (0.2-0.9); Monocytes % 6.3 %; Neutrophils # 8.23 10^3/uL (1.8-7.7); Nucleated Red Blood Cells % 0 %; Platelet Count 202 10^3/cmm (130-400); Red Blood Count 5.22 10^6/uL (4.1-5.3); Red Cell Distribution Width 13.3 % (12.1-15.1); White Blood Count 10.8 10^3/uL (4.0-10.0)
[2021-08-18] MEDS: sodium chloride 0.9% 1,000 ML 999 ML IV (20:53)
[2021-08-18] MEDS: ondansetron 2 mg/ML SDV 2 mL 4 MG IVP (20:55)
[2021-08-18 20:59] VITALS: RESP 20
[2021-08-18] MEDS: morphine 4 mg/mL SDV 1 mL IVP (20:59)
[2021-08-18 21:02] VITALS: BP 128/82; PULSE 80; RESP 20; O2SAT 99
[2021-08-18 21:12] LABS: Alanine Aminotransferase 64 U/L (0-41); Albumin Level 4.6 g/dL (3.5-5.2); Alkaline Phosphatase 69 IU/L (40-130); Blood Urea Nitrogen 15 mg/dL (6-20); Calcium 9.1 mg/dL (8.5-10.5); Carbon Dioxide 26 mmol/L (22-29); Chloride 99 mmol/L (98-107); Globulin 2.9 g/dL (1.3-4.6); Glomerular Filtration Rate 81.2 mL/min (90-130); Glucose 96 mg/dL (65-115); Osmolality Calculated 283 mOsm/kg (285-295); Sodium 136 mmol/L (136-145); Total Bilirubin 0.3 mg/dL (0.15-1.2); Total Protein 7.5 g/dL (6.6-8.7)
[2021-08-18 21:14] LABS: Anion Gap 15.2 (5-19); Potassium 4.2 mmol/L (3.5-5.1)
[2021-08-18 21:15] LABS: Aspartate Amino Transferase 32 U/L (0-40)
--- NOTE | 2021-08-18 21:55 | PC.NURSE ---
instructed pt and family that the patient can not eat or drink at this time
[2021-08-18] MEDS: nicotine 21 mg Patch 1 PATCH TRANSDERMA (22:17)
[2021-08-18 22:18] VITALS: RESP 20
[2021-08-18] MEDS: HYDROmorphone 1 mg/mL INJ 1 mL IVP (22:18)
[2021-08-18] MEDS: piperacillin-tazobactam 3.375 GM in sodium chloride 0.9% (plus) 50 ML IV (22:20)
[2021-08-18 22:36] LABS: Add Urine Microscopic? NO; Charge for UA Resulting for Rev
[2021-08-18 22:38] LABS: Bilirubin Urine Neg (Negative); Blood Urine Neg (Negative); Glucose Urine UA Norm (Normal); Ketones Urine Negative (Negative); Leukocyte Esterase Urine Negative (Negative); Nitrate Urine Negative (Negative); Protein Urine Neg (Negative); Urine Appearance Clear (CLEAR); Urine Color Yellow (Yellow); Urobilinogen Urine Norm (Negative); pH Urine 7 (5-7)
[2021-08-18 23:31] VITALS: BP 136/66; PULSE 66; RESP 20
[2021-08-19] VITALS (14 sets, daily range): BP systolic 109–146; BP diastolic 57–93; PULSE 52–78; RESP 14–20; TEMP 36.4–37; O2SAT 92–100; BMI 26.9
[2021-08-19] MEDS: lactated ringers 1,000 ML 100 ML IV (00:22)
[2021-08-19] MEDS: morphine 4 mg/mL SDV 1 mL IVP ×2 (01:01→07:26)
[2021-08-19] MEDS: piperacillin-tazobactam 3.375 GM in sodium chloride 0.9% (plus) 50 ML IV (05:19)
--- NOTE | 2021-08-19 05:33 | PC.NURSE ---
pt rested quietly after transfer from the ED. VSS. PRN pain medication given. Pt up to bathroom independently. Adequate UOP. Pt NPO since MN. Frequently repositioning done by patient independently. Frequent rounding done. All needs met. Pt prepped with CHG wipes for procedure.
[2021-08-19 05:49] LABS: Basophils % 0.2 %; Eosinophils # 0.2 10^3/uL (0.0-0.8); Eosinophils % 2.2 %; Hematocrit 41.8 % (42.0-52.0); Lymphocytes % 24.4 %; Mean Corpuscular HGB Conc 33.5 g/dL (30.0-36.0); Mean Corpuscular Hemoglobin 29.3 pg (28.0-34.0); Mean Corpuscular Volume 87.4 fl (80-94); Mean Platelet Volume 12.8 fL (7.4-10.4); Monocytes # 0.7 10^3/uL (0.2-0.9); Monocytes % 8.1 %; Neutrophils # 5.41 10^3/uL (1.8-7.7); Neutrophils % 64.9 %; Nucleated Red Blood Cells % 0 %; Platelet Count 190 10^3/cmm (130-400); Red Blood Count 4.78 10^6/uL (4.1-5.3); Red Cell Distribution Width 13.2 % (12.1-15.1); White Blood Count 8.4 10^3/uL (4.0-10.0)
[2021-08-19 06:11] LABS: Alanine Aminotransferase 47 U/L (0-41); Albumin Level 4.1 g/dL (3.5-5.2); Alkaline Phosphatase 65 IU/L (40-130); Anion Gap 12.8 (5-19); Aspartate Amino Transferase 24 U/L (0-40); Blood Urea Nitrogen 11 mg/dL (6-20); Calcium 8.5 mg/dL (8.5-10.5); Carbon Dioxide 25 mmol/L (22-29); Chloride 106 mmol/L (98-107); Globulin 2.3 g/dL (1.3-4.6); Glomerular Filtration Rate 91.7 mL/min (90-130); Glucose 101 mg/dL (65-115); Osmolality Calculated 290 mOsm/kg (285-295); Potassium 3.8 mmol/L (3.5-5.1); Sodium 140 mmol/L (136-145); Total Bilirubin 0.5 mg/dL (0.15-1.2); Total Protein 6.4 g/dL (6.6-8.7)
--- NOTE | 2021-08-19 07:56 | ANES.PREANE2 ---
Pre-Anesthetic Assessment Height/Weight: Height 1.85 m Weight 92.533 kg Temp Pulse Resp BP Pulse Ox 97.7 F 53 L 16 117/75 99 08/19/21 07:55 08/19/21 07:55 08/19/21 07:55 08/19/21 07:55 08/19/21 07:55 Preop Diagnosis: Acute appe Operation Date: 08/19/21 09:20 Proposed Procedures p Laparoscopic Appendectomy(Not Applicable) - Bernard Murillo MD Familial anesthetic complications: None known Was Beta Sharonda taken within 24 hours: N/A Was Clonidine taken within 24 hours: N/A Last intake: Intake Last Liquid Date 08/18/21 Last Liquid Time 18:30 Last Solid Date 08/18/21 Last Solid Time 11:00 Social Tobacco and No alcohol Exam alert, oriented x 3, clear to auscultation bilaterally and regular rate & rhythm Airway Submandibular: within normal limits Cervical ROM: within normal limits Mallampati: Class I Dentition: full History/ROS No significant history except as noted Pulmonary None reported CV/HEM None reported METS > 4 None reported Hepatic None reported GI Acute appendicitis Metabolic None reported Musc/skel None reported Neuropsych None reported Anesthetic Plan ASA status: 2 Anesthesia: Anesthesia Evaluation and General Other: We discussed risk and benefits of general anesthesia including PONV, sore throat (sometimes severe), corneal abrasion, positioning and peripheral nerve injuries, life threatening allergic reaction, post operative ICU admission requiring prolonged intubation, stroke, heart attack, , and rare incidences of recall. Patient consents to proceed with general anesthesia. Risk of > 500 ml blood loss (7ml/kg in children): No Medications/Allergies Home Medications Medication Instructions Recorded Confirmed Last Taken Type kebrzyz-hlrlwbgbqxrcx-ayiainzc 250 1 - 2 tab PO Q6H PRN 09/07/20 08/18/21 08/15/21 18:00 History mg-250 mg-65 mg tablet (Excedrin Extra Strength) ibuprofen 800 mg tablet 800 mg PO Q8H PRN #12 tab 11/01/20 08/18/21 Unknown Rx Allergies Allergy/AdvReac Type Severity Reaction Status Date / Time No Known Allergies Allergy Verified 06/16/20 17:40 Current Medications Generic Name Dose Route Start Last Admin Trade Name Freq PRN Reason Stop Dose Admin Lactated Ringer's 1,000 mls @ 100 mls/hr 08/18/21 23:28 08/19/21 00:22 Lactated Ringers IV 100 mls/hr .Q10H HIPOLITO Administration Piperacillin Sod/Tazobactam 50 mls @ 100 mls/hr 08/19/21 06:00 08/19/21 05:49 Sod 3.375 gm/ Sodium Chloride IV Infused Q8H HIPOLITO Infusion Protocol Morphine Sulfate 4 mg 08/18/21 23:28 08/19/21 07:26 Morphine 4 Mg/Ml Sdv 1 Ml IVP 4 mg Q4H PRN Administration SEVERE PAIN PFSH Anesthesia Medical History (Updated 08/19/21 @ 08:18 by Bernard Murillo MD) No pertinent past medical history Surgical History (Updated 08/19/21 @ 08:18 by Bernard Murillo MD) No significant past surgical history Data Anesthesia : 08/19/21 04:55 08/19/21 04:55 Short CBC 08/18/21 08/19/21 Range/Units 20:40 04:55 WBC 10.8 H 8.4 (4.0-10.0) 10^3/uL Hgb 15.3 14.0 (11.7-16.6) g/dL Hct 46.0 41.8 L (42.0-52.0) % MCV 88.1 87.4 (80-94) fl Plt Count 202 190 (130-400) 10^3/cmm Neut % (Auto) 76.0 64.9 % Neut # (Auto) 8.23 H 5.41 (1.8-7.7) 10^3/uL BMP 08/18/21 08/19/21 20:40 04:55 Sodium 136 140 Potassium 4.2 3.8 Chloride 99 106 Carbon Dioxide 26 25 BUN 15 11 Creatinine 1.0 0.9 Glucose 96 101 Calcium 9.1 8.5 Liver Function 08/18/21 08/19/21 Range/Units 20:40 04:55 Total Bilirubin 0.3 0.5 (0.15-1.2) mg/dL AST 32 24 (0-40) U/L ALT 64 H 47 H (0-41) U/L Alkaline Phosphatase 69 65 (40-130) IU/L Albumin 4.6 4.1 (3.5-5.2) g/dL Urine 03/11/22 Range/Units 22:27 Urine Color Yellow (Yellow) Urine Appearance Clear (CLEAR) Urine pH 7 (5-7) Ur Specific [place] 1.000 L (1.005-1.030) Urine Protein Neg (Negative) Urine Glucose (UA) Norm (Normal) Urine Ketones Negative (Negative) Urine Nitrate Negative (Negative) Urine Bilirubin Neg (Negative) Ur Leukocyte Esterase Negative (Negative) Cardiac Studies: No Data to Display
--- NOTE | 2021-08-19 08:16 | P.HP_ITS ---
Providers/Chief Complaint Admitting Physician: Bernard Murillo MD Chief Complaint: Abd Pain History of Present Illness Etienne Jennings is a 46 year old male who presented to the ER yesterday after he started with lower abdominal pain mainly on the left side initially around 5 PM. By the time he made it to the emergency room the pain is localized to the right lower quadrant. He denies any nausea, vomiting, constipation, diarrhea, fevers or chills. He is otherwise healthy. Medications/Allergies Home Medications Medication Instructions Recorded Confirmed Last Taken Type gqdooxm-sbuxzdvtqatjw-pyaykwnp 250 1 - 2 tab PO Q6H PRN 09/07/20 08/18/21 08/15/21 18:00 History mg-250 mg-65 mg tablet (Excedrin Extra Strength) ibuprofen 800 mg tablet 800 mg PO Q8H PRN #12 tab 11/01/20 08/18/21 Unknown Rx Allergies Allergy/AdvReac Type Severity Reaction Status Date / Time No Known Allergies Allergy Verified 06/16/20 17:40 PFSH Acute PFSH: Medical History No pertinent past medical history Surgical History No significant past surgical history Vitals/I&O/Wt Last Vital Signs Temp 97.7 F 08/19/21 07:55 Pulse 53 L 08/19/21 07:55 Resp 16 08/19/21 07:55 BP 117/75 08/19/21 07:55 Pulse Ox 99 08/19/21 07:55 08/18/21 08/19/21 08/19/21 22:59 06:59 14:59 Intake Total 1100 / 1100 Balance 1100 / 1100 Weight last 48 hrs Weight 204 lb Weight 225 lb Physical Exam Narrative: HEENT: Normocephalic Eye: Sclera /conjunctiva normal Abdomen: Soft to palpation, tender over McBurney's point, no guarding or rigidity along Neurological: Oriented to place person and time Skin: Intact, no lesions appreciated on gross exam Data : 08/19/21 04:55 08/19/21 04:55 Other data: CT abdomen pelvis performed on 08/18/2021 that I reviewed shows acute appendicitis A&P Assessment and plan (1) Acute appendicitis: 46-year-old male with right lower quadrant pain since yesterday evening who is tender to palpation at McBurney's point. WBC is 8.[address] scan showed acute appendicitis. He received IV Zosyn overnight. Plan for laparoscopic possible open appendectomy Procedure, risks, benefits and alternatives have been discussed with the patient who wishes to proceed with surgery. 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
--- NOTE | 2021-08-19 09:13 | PM.OP ---
Operative Report Date of procedure: August 19, 2021 Pre-op diagnosis: Acute appendicitis Post-op diagnosis: same Procedure done: Laparoscopic appendectomy Specimens removed/disposition: Appendix Surgeon: Bernard Murillo Anesthesia: General Condition: stable Disposition: PACU Procedure: The patient was taken to the Operating Room and intubated under general anesthesia after antibiotic had been administered. Using a 15 blade, a 1-cm infraumbilical incision was made and using open Verito technique, the peritoneal cavity was entered. A 12mm port with balloon was placed and 15 mm of pneumoperitoneum was created and 10-mm 30 degree scope was introduced. Two separate 5mm ports were placed in the left and right lower quadrant under direct visualization. The appendix was noted in the right lower quadrant and appeared acutely inflamed.. Using [place] forceps, an opening was made in the mesoappendix near the base of the appendix. An Endo JANAK stapler 45mm long 3.5mm blue load was introduced to divide the appendix at it's base. Using electrocautery, the mesoappendix including the appendicular artery was divided. There was no bleeding noted and the staple line appeared intact and an EndoCatch bag was introduced to remove the appendix. All three ports were removed under direct visualization and there was no bleeding noted on the port sites. 10 0.5% Marcaine was infiltrated at the port sites. The fascia at the umbilical port was closed using figure of eight 0-Vicryl sutures and subcutaneous tissue was approximated using 3-0 Vicryl and skin at all 3 port sites was closed using 4-0 Monocryl and Dermabond. 10 cc of 0.5% Marcaine was infiltrated at the port sites. The patient was extubated and transferred to recovery room in stable condition.
--- NOTE | 2021-08-19 09:15 | PM.DCS ---
Discharge Providers Date of Admission: 08/18/21 22:01 Date of Discharge: August 19, 2021 Attending Provider at Admission: Bernard Murillo MD Attending Provider at Discharge: Bernard Murillo MD Diagnoses at Discharge Discharge Diagnosis (1) Acute appendicitis: Status: Acute Reason for Visit Reason for Visit: Acute appendicitis Brief History: Etienne Jennings is a 46 year old male who presented to the ER yesterday after he started with lower abdominal pain mainly on the left side initially around 5 PM.? By the time he made it to the emergency room the pain is localized to the right lower quadrant.? He denies any nausea, vomiting, constipation, diarrhea, fevers or chills.? He is otherwise healthy. Hospital Course Hospital Course Patient was admitted to the hospital overnight placed on IV Zosyn. He underwent laparoscopic appendectomy the following morning. At time of discharge his vital signs are stable he is tolerating a clear liquid diet and pain was controlled with oral pain medications. Discharge Data Studies Completed and Pending Completed Studies During Hospitalization Category Date Time Status CT abdomen pelvis w con* [id number] Urgent Cat Scan 08/18/21 20:26 Completed Pending at discharge Category Date Time Status ES surgery / GI images Routine Exams 08/19/21 08:19 Taken Radiology Impressions Abdomen/Pelvis CT 08/18/21 20:26 IMPRESSION: Acute appendicitis. ADDENDUM: 08/18/212130 Confirmation that DALLIN TROY recieved the report was obtained 9:30 PM CST08/18/2021 Laboratory Results WBC 8.4 10^3/uL (4.0-10.0) 08/19/21 04:55 RBC 4.78 10^6/uL (4.1-5.3) 08/19/21 04:55 Hgb 14.0 g/dL (11.7-16.6) 08/19/21 04:55 Hct 41.8 % (42.0-52.0) L 08/19/21 04:55 MCV 87.4 fl (80-94) 08/19/21 04:55 MCH 29.3 pg (28.0-34.0) 08/19/21 04:55 MCHC 33.5 g/dL (30.0-36.0) 08/19/21 04:55 RDW 13.2 % (12.1-15.1) 08/19/21 04:55 Plt Count 190 10^3/cmm (130-400) 08/19/21 04:55 MPV 12.8 fL (7.4-10.4) H 08/19/21 04:55 Neut % (Auto) 64.9 % 08/19/21 04:55 Lymph % (Auto) 24.4 % 08/19/21 04:55 [place] % (Auto) 8.1 % 08/19/21 04:55 Eos % (Auto) 2.2 % 08/19/21 04:55 Baso % (Auto) 0.2 % 08/19/21 04:55 Neut # (Auto) 5.41 10^3/uL (1.8-7.7) 08/19/21 04:55 Lymph # (Auto) 2.0 10^3/uL (0.8-4.8) 08/19/21 04:55 [place] # (Auto) 0.7 10^3/uL (0.2-0.9) 08/19/21 04:55 Eos # (Auto) 0.2 10^3/uL (0.0-0.8) 08/19/21 04:55 Baso # (Auto) 0.0 10^3/uL (0.0-0.1) 08/19/21 04:55 Nucleated RBC % (auto) 0 % 08/19/21 04:55 Nucleated RBCs # 0.0 /100WBC 08/19/21 04:55 Sodium 140 mmol/L (136-145) 08/19/21 04:55 Potassium 3.8 mmol/L (3.5-5.1) 08/19/21 04:55 Chloride 106 mmol/L (98-107) 08/19/21 04:55 Carbon Dioxide 25 mmol/L (22-29) 08/19/21 04:55 Anion Gap 12.8 (5-19) 08/19/21 04:55 BUN 11 mg/dL (6-20) 08/19/21 04:55 Creatinine 0.9 mg/dL (0.7-1.2) 08/19/21 04:55 GFR Calculation 91.7 mL/min (90-130) 08/19/21 04:55 Glucose 101 mg/dL (65-115) 08/19/21 04:55 Calculated Osmolality 290 mOsm/kg (285-295) 08/19/21 04:55 Calcium 8.5 mg/dL (8.5-10.5) 08/19/21 04:55 Total Bilirubin 0.5 mg/dL (0.15-1.2) 08/19/21 04:55 AST 24 U/L (0-40) 08/19/21 04:55 ALT 47 U/L (0-41) H 08/19/21 04:55 Alkaline Phosphatase 65 IU/L (40-130) 08/19/21 04:55 Total Protein 6.4 g/dL (6.6-8.7) L 08/19/21 04:55 Albumin 4.1 g/dL (3.5-5.2) 08/19/21 04:55 Globulin 2.3 g/dL (1.3-4.6) 08/19/21 04:55 Urine Color Yellow (Yellow) 08/18/21 22:27 Urine Appearance Clear (CLEAR) 08/18/21 22:27 Urine pH 7 (5-7) 08/18/21 22:27 Ur Specific [place] 1.000 (1.005-1.030) L 08/18/21 22:27 Urine Protein Neg (Negative) 08/18/21 22:27 Urine Glucose (UA) Norm (Normal) 08/18/21 22:27 Urine Ketones Negative (Negative) 08/18/21 22:27 Urine Blood Neg (Negative) 08/18/21 22:27 Urine Nitrate Negative (Negative) 08/18/21 22:27 Urine Bilirubin Neg (Negative) 08/18/21 22:27 Urine Urobilinogen Norm mg/dL (Negative) 08/18/21 22:27 Ur Leukocyte Esterase Negative (Negative) 08/18/21 22:27 Vitals Last Vital Signs Temp 98.6 F 08/19/21 08:32 Pulse 65 08/19/21 08:32 Resp 16 08/19/21 08:32 BP 115/70 08/19/21 08:32 Pulse Ox 96 08/19/21 08:32 Discharge Plan Discharge Patient Disposition: Home Condition: Stable Prescriptions: New hydrocodone-acetaminophen 5-325 mg tablet 1 tab PO Q6H PRN (Reason: pain) Qty: 20 0RF docusate sodium [Colace] 100 mg capsule 100 mg PO BID Qty: 30 0RF ondansetron HCl [Zofran] 4 mg tablet 4 mg PO Q6H PRN (Reason: nausea and vomiting) Qty: 20 0RF Continued Excedrin Extra Strength 250-250-65 mg Tablet 1 - 2 tab PO Q6H PRN (Reason: Migraine Headache) 0RF ibuprofen 800 mg tablet 800 mg PO Q8H PRN (Reason: pain) Qty: 12 0RF Discharge Orders: Discharge Order (Routine); Ordered 08/19/21 Ordered By: Bernard Murillo Referrals: Bernard Murillo MD [Physician] - 2 weeks Patient Instructions: Opioid Safety Activity Restrictions/Additional Instructions: Diet Advance to normal diet as tolerated, increase fluid intake as much as possible. Activity Avoid strenuous activity for 2 weeks but continue with daily activities including walking as tolerated. Do not lift more than 10 pounds for 2 weeks Return to work/school You can return to work/ school whenever you feel ready as long as you don?t have to lift more than 10 pounds at work. If you have paperwork that needs to be completed for time off from work, please contact my office Driving You can resume driving once you stop using narcotic pain medications, and transition to non-opioid pain medications like Tylenol, Motrin, Aleve, etc. Medications Pain Take opioid pain medications as prescribed and transition to non-opioid pain medications like Tylenol, Motrin, Aleve etc. over the next few days. The goal of the pain medications is to make the pain bearable and not to be pain free since you recently had surgery. Resume all home medications after surgery as per the medication reconciliation list Nausea Nausea is common after surgery, take nausea medications as needed and stay on a liquid bland diet until nausea resolves. Constipation The combination of surgery, anesthesia and pain medications can result in constipation. Take stool softeners as prescribed. If you do not have a bowel movement in 3 days, please take an [id number]-[id number] laxative like MiraLAX to address the constipation. Shower It is ok to shower but avoid getting the wound wet for 48 hours after surgery. Do not soak in bathtub, swimming pool or hot tub for 2 weeks. Wound care If glue has been used on your incisions after surgery, the glue on the incision will peel slowly over the next two weeks. The stitches used are dissolvable and will not need to be removed. Do not apply antibiotics or other medications on the incision Problems with the wound: you can develop some redness around the incision from bruising after surgery. If there is increasing pain, redness, tenderness around the incision with or without drainage, please contact my office to rule out an infection. Sometimes the skin at the incisions can separate, resulting in reopening of the wound. Cover the wound with antibiotic cream and sterile dressings and contact my office. Contact physician Call the office at [phone] during office hours or go the Emergency Room ?Fever to 100.4 or greater ?Shaking chills ?Pain that increases over time ?Redness, warmth, or pus draining from incision sites ?Persistent nausea or inability to take in liquids Discharge Attestations Time Spent in Discharge Care*: less than 30 min Quality Metrics Clinical Quality Measures [ No reported AMI, CVA or VTE this stay] Coding Level of Care Code Acute [facility] note Diagnoses Acute appendicitis K35.80
--- NOTE | 2021-08-19 09:32 | ANE.PACU2 ---
Inpatient post-anesthesia follow up: Airway intact: Yes Vital signs: Temperature 97.6 F Pulse Rate 52 Respiratory Rate 14 Blood Pressure 110/61 Pulse Oximetry 93 Oxygen Delivery Me thod Room Air Oxygen Flow Rate 10 Fraction of Inspir ed Oxygen Hydration adequate: Yes Nausea and vomiting: No Pain level: 1 Mental status: Baseline
[2021-08-19] MEDS: HYDROcodone-acetaminophen 5-325 mg Tablet 1 TAB PO (10:12)
[2021-08-19] MEDS: sodium chloride 0.9% 1,000 ML 100 ML IV (10:12)
== END 2021-08-19 11:40 | disposition home or self-care (01) ==
LOC: ER 21:58 → MEDSURG 22:43
PROVIDERS: Emergency Medicine; Admitting Provider Surgery; Emergency Provider Nurse Practitioner Family; Visit Provider Surgery
PROC: 0DTJ4ZZ Resection of Appendix, Percutaneous Endoscopic Approach (ICD-10-PCS; CPT 44970; principal; 2021-08-19 09:00)
DX: K35.80 Unspecified acute appendicitis (principal)
CPT/HCPCS: 44970; 36415; 74177; 80053; 81003; 85025; 88304; 96365; 96375; 99285; G0378; J0330; J1170; J1885; J2270; J2405; J2543; J2704; J2710; J3010; J3490; J7030; Q9967

== ENCOUNTER → 2023-06-09 12:06 | Outpatient (BNVA) | payer SELFPAY | PROVIDERS: Visit Provider Nurse Practitioner | DX: J06.9 Acute upper respiratory infection, unspecified (principal) | CPT/HCPCS: 87400; 87426 ==

== ENCOUNTER 2023-07-25 11:00 | Emergency (ER) | payer SELFPAY ==
[2023-07-25 11:06] VITALS: BP 152/83; PULSE 81; RESP 18; TEMP 36.8; O2SAT 93; BMI 27.0
--- NOTE | 2023-07-25 11:15 | US_ITS ---
WS: [id number] TESTICULAR ULTRASOUND HISTORY: testicle pain COMPARISON: None available. TECHNIQUE: Real-time and color Doppler imaging or utilized to perform a testicular ultrasound. Right testicle: 5.4 cm x 3.6 cm x 3.1 cm. Normal size and echogenicity. No mass or torsion. Normal color Doppler is present throughout. Systolic and diastolic velocities are both present. Small simple hydrocele. Right epididymis: No increased vascularity within the epididymis. Epididymis is mildly prominent with heterogeneity. Left testicle: 5.4 cm x 3.5 cm x 3.1 cm. Normal size and echogenicity. No mass or torsion. Normal color Doppler is present throughout. Systolic and diastolic velocities are both present. Small simple hydrocele. Left epididymis: Simple cyst in the LEFT epididymal head measures 1.5 x 2.5 x 2.0 cm. No increased va scularity. IMPRESSION: 1. No testicular mass or torsion. 2. No epididymitis or orchitis. 3. LEFT epididymal head spermatocele. Spermatocele measures 1.5 x 2.5 x 2.0 cm. 4. Small bilateral simple hydroceles.
--- NOTE | 2023-07-25 11:23 | W.ED.GENADLT ---
HPI - General Adult General: Chief complaint: General Medical Stated complaint: spot on testicle Time Seen by Provider: 07/25/23 11:12 Source: patient Mode of arrival: ambulatory Limitations: no limitations History of Present Illness: 48-year-old male states he noticed a lump on his left testicle he states that he has had increasing pain over the last week to his left testicle. States pain sharp in nature denies any dysuria he has not had any imaging denies any fevers. Associated symptoms: Deny chest pain, dyspnea, headache(s), nausea, rash or vomiting Review of Systems Const: Denies: fever(s), chills, body aches or change in appetite ENMT: Denies: dental pain Card: Denies: chest pain Resp: Denies: dyspnea GI: Denies: abdominal pain, nausea, vomiting or diarrhea : Reports: testicular pain and testicular mass; Denies: dysuria Musc: Denies: neck pain or back pain Skin/Breast: Denies: rash Neuro: Denies: headache(s) PFSH ED PFSH: Medical History No pertinent past medical history Surgical History S/P laparoscopic appendectomy (08/19/21) Physical Exam Const: COMMON NORMALS: no acute distress, patient oriented x3 and healthy appearing HENMT: COMMON NORMALS: normocephalic and atraumatic HEAD & SCALP: normocephalic and atraumatic Neck/C-Spine: COMMON NORMALS: full ROM Chest: COMMONS NORMALS: normal inspection of the chest Resp: COMMON NORMALS: normal respiratory effort Cardio: COMMON NORMALS: regular rate, regular rhythm and No murmurs present (Cardio) RATE: regular rate RHYTHM: regular rhythm : OTHER: Slight tenderness noted to left testicle with a small lump palpated Extremity: COMMON NORMALS: normal to inspection and full ROM Neuro: COMMON NORMALS: patient oriented x3, moves all extremities and no focal motor deficits Psych: COMMON NORMALS: mental status grossly normal, Normal thought process present and cooperative THOUGHT PROCESS: Normal thought process present Skin: COMMON NORMALS: no rashes or lesions noted and no wounds GENERAL SKIN EXAM: no rashes or lesions noted Course Vital Signs: Vital signs: Vital Signs Temperature 98.2 F 07/25/23 11:06 Pulse Rate 83 07/25/23 12:08 Respiratory Rate 16 07/25/23 12:08 Blood Pressure 138/93 07/25/23 12:08 Pulse Oximetry 97 07/25/23 12:08 Oxygen Delivery Me thod Room Air 07/25/23 12:08 MDM - General Adult Medical Decision Making Patient presents here with a spermatocele of his testicle with no signs of torsion or epididymitis. Will place him on pain meds we will get him follow-up with urology he is return if worsening. Medical Records I reviewed the patient's medical records. 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
[2023-07-25 12:08] VITALS: BP 138/93; PULSE 83; RESP 16; O2SAT 97
--- NOTE | 2023-07-29 10:54 | DCPLANNER ---
Addendum entered by Tj Haider 07/29/23 12:25: Patient called back on 07/29/23 at 1226. I spoke to him about his referral he is requesting referral to be sent to [facility]. I told him i will send referral to [facility] [place] phone number is [phone]. Fax number is [phone] Original Note: I attempted to call the patient on 07/26/23 at 0914 am to see where he would like his referral for urology sent to. I also tried to call the patient for the 2nd time on 07/29/23 at 1053 am. Patient did not answer and unable to leave a voicemail
== END 2023-07-25 12:50 | disposition home or self-care (01) ==
PROVIDERS: Emergency Provider Emergency Medicine
DX: N43.40 Spermatocele of epididymis, unspecified (principal)
CPT/HCPCS: 76870; 99284

== ENCOUNTER 2023-10-28 12:09 | Emergency (ER) | payer OTHER, SELFPAY ==
--- NOTE | 2023-10-28 12:20 | US_ITS ---
WS: [id number] TESTICULAR ULTRASOUND HISTORY: testicular swelling, recent epididymal cyst removal on the LEFT. COMPARISON: 07/25/2023 TECHNIQUE: Real-time and color Doppler imaging or utilized to perform a testicular ultrasound. Right testicle: 5.3 cm x 3.1 cm x 3.4 cm. Normal size and echogenicity. No mass or torsion. Normal color Doppler is present throughout. Systolic and diastolic velocities are both present. There is a mildly complex hydrocele surrounding the testicle which is slightly increased in size sinc e the prior exam. Right epididymis: Normal epididymis with no increased vascularity. Left testicle: 5.2 cm x 4.3 cm x 3.4 cm. Normal size and echogenicity. No mass or torsion. Normal color Doppler is present throughout. Systolic and diastolic velocities are both present. No significant hydrocele. Left epididymis: There is a complex multifocal cystic mass along the superior LEFT testicle. There is no increased vascularity. There are multiple small simple and nonsimple collections. This mass measu res 2.6 x 3.7 x 5.0 cm. Most consistent with a hematoma post surgery. The previously described LEFT s permatocele is not identified. US/US scrotum [id number] IMPRESSION: 1. Heterogeneous mass with multiple small cysts and complex cysts in the regio n of the LEFT epididymal head. This is probably a hematoma at the surgical site for a LEFT spermatocele removal. 2. Small but increasing mildly complex RIGHT hydrocele. 3. No testicular mass or torsion.
[2023-10-28 12:23] VITALS: BP 111/75; PULSE 89; RESP 16; TEMP 36.6; O2SAT 96
== END 2023-10-28 16:35 | disposition left against medical advice (07) ==
PROVIDERS: Emergency Provider Family Medicine; PCP Family Medicine
DX: Z53.21 Procedure and treatment not carried out due to patient leaving prior to being seen by health care provider (principal)
CPT/HCPCS: 76870